=== PATIENT | female | born 1950 | race Caucasian/White ===

== ENCOUNTER → 2019-10-19 | Outpatient (CLI) | payer MEDICARE ==
[~2019-10-19] MED LIST: IBAN150T15 PO; premarin
== END | disposition home or self-care (01) ==
LOC: STAR 08:50
PROVIDERS: ATTEND Obstetrics & Gynecology Female Pelvic Medicine and Reconstructive Surgery
DX: Z01.818 Encounter for other preprocedural examination (principal); N95.0 Postmenopausal bleeding; R10.2 Pelvic and perineal pain; N81.2 Incomplete uterovaginal prolapse
CPT/HCPCS: 93005

== ENCOUNTER 2019-10-23 07:16 | Day surgery (SDC) | payer MEDICARE ==
[2019-10-19 09:15] VITALS: BP 143/82
[~2019-10-23] VITALS: Ht 163.8 cm; Wt 87.5 kg
[2019-10-23] MEDS ORDERED: LACTATED RINGERS 1,000 ML IV SCH (07:31)
[2019-10-23] MEDS ORDERED: GABAPENTIN 300 MG CAPSULE ONE (07:46)
[2019-10-23] MEDS ORDERED: ACETAMINOPHEN 500 MG TABLET ONE (07:46)
[2019-10-23] MEDS ORDERED: GABAPENTIN 300 MG CAPSULE PO ONE (08:00)
[2019-10-23] MEDS ORDERED: ACETAMINOPHEN 500 MG TABLET PO ONE (08:00)
[2019-10-23] MEDS ORDERED: CHLORHEXIDINE 15 ML UDC MM ONE (08:00)
[2019-10-23] MEDS ORDERED: LABETALOL 5MG/ML, 20ML IV PRN (09:00)
[2019-10-23] MEDS ORDERED: MEPERIDINE/PF 25MG/0.5ML IVPush PRN (09:00)
[2019-10-23] MEDS ORDERED: HALOPERIDOL 5 MG/ML IV PRN (09:00)
[2019-10-23] MEDS ORDERED: hydrALAzine 20 MG/ML, 1ML IV PRN (09:00)
[2019-10-23] MEDS ORDERED: OXYcodone 5 MG/5 ML ORAL.SOL UDC PO PRN (09:00)
[2019-10-23] MEDS ORDERED: PROMETHAZINE 25 MG/ML, 1ML IVPush PRN (09:00)
[2019-10-23] MEDS ORDERED: DIPHENHYDRAMINE 50 MG/ML, 1ML IVPush PRN (09:00)
[2019-10-23] MEDS ORDERED: HYDROmorphone 1 MG/ML, 1ML INJ IVPush PRN (09:00)
[2019-10-23] MEDS ORDERED: FENTANYL PF 100 MCG/2ML IV PRN (09:00)
[2019-10-23] MEDS ORDERED: FENTANYL PF 250 MCG/5ML ONE (09:15)
[2019-10-23] MEDS ORDERED: VANCOMYCIN 500 MG ONE (10:11)
[2019-10-23] MEDS ORDERED: GENTAMICIN 80 MG/2 ML ONE (10:11)
[2019-10-23] MEDS ORDERED: BUPIVACAINE/PF-EPI 0.25% 1:200K ONE (10:11)
[2019-10-23] MEDS ORDERED: EPHEDRINE 50 MG/ML, 1ML ONE (10:19)
[2019-10-23] MEDS ORDERED: KETOROLAC 30 MG/1 ML ONE (10:41)
[2019-10-23] MEDS ORDERED: FLUORESCEIN SODIUM 500 MG/5 ML ONE (11:30)
[2019-10-23] MEDS ORDERED: FUROSEMIDE 20 MG/2 ML ONE (11:30)
[2019-10-23] MEDS ORDERED: SUCCINYLCHOLINE 20 MG/ML, 10ML ONE (12:39)
[2019-10-23] MEDS ORDERED: CEFAZOLIN 1,000 MG ONE (12:39)
[2019-10-23] MEDS ORDERED: PROPOFOL 10 MG/ML, 20ML ONE (12:39)
[2019-10-23] MEDS ORDERED: ROCURONIUM 10MG/ML,5ML ONE (12:39)
[2019-10-23] MEDS ORDERED: NEOSTIGMINE 1 MG/ML, 10ML ONE (12:39)
[2019-10-23] MEDS ORDERED: DEXAMETHASONE 4 MG/ML, 1ML ONE (12:39)
[2019-10-23] MEDS ORDERED: GLYCOPYRROLATE 0.2MG/1ML, 5ML ONE (12:39)
[2019-10-23] MEDS ORDERED: ONDANSETRON 2MG/ML, 2ML ONE (12:39)
== END 2019-10-23 19:15 | disposition home or self-care (01) ==
LOC: OUT 07:16
PROVIDERS: ATTEND Obstetrics & Gynecology Female Pelvic Medicine and Reconstructive Surgery
DX: N81.3 Complete uterovaginal prolapse (principal); Z11.59 Encounter for screening for other viral diseases; N39.46 Mixed incontinence; N80.0 Endometriosis of uterus; D25.1 Intramural leiomyoma of uterus; D25.2 Subserosal leiomyoma of uterus; N83.8 Other noninflammatory disorders of ovary, fallopian tube and broad ligament; N83.292 Other ovarian cyst, left side; N83.291 Other ovarian cyst, right side; R10.2 Pelvic and perineal pain; M81.0 Age-related osteoporosis without current pathological fracture; E66.9 Obesity, unspecified; Z79.899 Other long term (current) drug therapy; Z98.890 Other specified postprocedural states
CPT/HCPCS: 36415; 57265; 57282; 57288; 58552; 87635; 88305; C1771; J0330; J0690; J1100; J1200; J1580; J1885; J1940; J2405; J2704; J2710; J3010; J3370; J7120

== ENCOUNTER 2020-11-20 08:54 | Outpatient (CLI) | payer MEDICARE | END 2020-11-20 23:59 | disposition home or self-care (01) | LOC: CFH 08:54 | PROVIDERS: ATTEND Obstetrics & Gynecology Female Pelvic Medicine and Reconstructive Surgery | DX: Z12.31 Encounter for screening mammogram for malignant neoplasm of breast (principal) | CPT/HCPCS: 77063; 77067 ==